=== PATIENT | female | born 1925 | race Caucasian/White ===

== ENCOUNTER 2017-02-02 22:17 | Emergency (ER) | payer MEDICARE, OTHER ==
--- NOTE | 2017-02-02 23:11 | ERNOTE ---
Dizziness ER Record Date of Service: 02/02/17 Presenting Symptoms: dizziness Time Seen by Provider: 02/02/17 23:10 Source: patient Immunizations: IMMUNIZATION HX Immunizations Up to Date Yes History of Influenza Vaccine Yes Hx Pneumococcal Vaccination Yes Allergies/Adverse Reactions: Allergies Allergy/AdvReac Type Severity Reaction Status Date / Time Penicillins Allergy Verified 03/13/14 02:14 Home Medications: HOME MEDICATIONS Aspirin 325 mg PO DAILY 07/19/12 [Last Taken Unknown] Nitroglycerin 0.4 mg SL Q5MIN PRN 07/19/12 [Last Taken Unknown] Pravastatin Sodium [Pravachol] 20 mg PO DAILY 07/19/12 [Last Taken Unknown] - History of Present Illness Narrative: Patient is an 89-year-old female established patient of Dr. Rivers presents to emergency room complaining of lightheadedness she has a past medical history significant for coronary artery disease and reports 2 stents in 2003. Her current medications include pravastatin and aspirin she reports that she just doesn't feel well she is nauseous and just didn't feel correct patient denies taking any medications prior to arrival patient felt like the room was spinning. Patient is also followed by Dr. Cortez of cardiology and I was sitting and she is due to see her in a few weeks. She currently denies any chest pain she denies any abdominal pain she does have some nausea she denies any significant lower extremity swelling. She denies any associated shortness of breath. Date (Duration): 02/02/17 Time (Timing): 17:00 Timing and Duration: gradual onset, still present Noted on awakening:: No Severity: max: moderate Severity: currently: mild Associated Symptoms: Present: nausea Sense of movement: Present: spinning Fainted/near fainted while:: Absent: standing, sitting, supine - patient did not feel at any time that she was going to pass out. Decreased ability to stand/walk:: Present: off balance, other - patient usually ambulates with a cane mostly independently. Absent: weak Usually:: Present: walks w/o assistance Modifying Factors - (Improves): Reports: nothing Modifying Factors - (Worsens): Reports: changing position Review of Systems - Review of Systems Constitutional: Present: See HPI EYE: Present: no symptoms reported ENT: Present: no symptoms reported Respiratory: Present: no symptoms reported Cardiology: Present: no symptoms reported Gastrointestinal/Abdominal: Present: See HPI, nausea Genitourinary: Present: no symptoms reported Musculoskeletal: Present: no symptoms reported Skin: Present: no symptoms reported Neurological: Present: dizziness/light-headedness. Absent: tremors, pre- existing deficit Endocrine: Present: no symptoms reported All Other Systems: All systems neg except as marked - Narrative Narrative: Past medical history past surgical history medications allergies social history family history reviewed as below - Patient's Past Medical History Patient History - Medical: Other Patient History - Cardiac/Respiratory: Angina, Hyperlipidemia Patient History - Cancer: No Hx of Cancer Patient History - Surgical Procedures: Other Patient History - Other: None - Social History Living Situations: alone Abuse History: No History of abuse Psych History: No pertinent hx Smoking Status: Never smoker Have you smoked in the past 12 months: No Do you dip or chew tobacco: No Alcohol Use: none Drug Use: none - Immunizations Immunizations Up to Date: Yes Hx Pneumococcal Vaccination: Yes History of Influenza Vaccine: Yes Physical Exam - Physical Exam General Appearance: Present: wd/wn, alert, no apparent distress. Absent: anxious Head Exam: Present: normal inspection, no evidence of injury Eye Exam: Normal inspection: bilateral, PERRL: bilateral, EOMI: bilateral Ears, Nose, Throat: Present: normal ENT inspection, normal except - Neck: Present: normal inspection, nontender Respiratory: Present: no respiratory distress, normal breath sounds, other - basilar crackles are noted. Cardiovascular/Chest: Present: regular rate, rhythm, no murmur, normal peripheral pulses, other - rales bilaterally Peripheral Pulses: N=norm/S=strong/W=weak/B=bound/A=absent: Carotid (R): Normal , Carotid (L): Normal, Dorsalis-pedis (R): Normal, Dorsalis-pedis (L): Normal Gastrointestinal/Abdominal: Present: normal bowel sounds, nontender, nondistended, soft Rectal Exam: Present: deferred Extremity Exam: Present: normal inspection, non-tender, normal range of motion Neurological Exam: Present: alert, oriented, normal mood/affect, no motor/ sensory deficits Skin Exam: Present: normal color, warm/dry Pelvic Exam: Present: deferred ED Progress - Date and Time Seen: Date and Time: 02/03/17 02:01 lasix 40 mg IV - Results and Orders Patient's Lab Results:: I have reviewed the patient's lab results. Results and Orders: Laboratory Tests 02/02/17 02/02/17 02/02/17 23:25 23:25 23:25 WBC 6.7 RBC 4.09 L Hgb 12.7 Hct 38.2 MCV 93.4 MCH 31.1 H MCHC 33.2 RDW 12.4 Plt Count 227 MPV 9.5 Immature Gran % (Auto) 0.30 Immature Gran # (Auto) 0.02 Neutrophils % 51.8 Lymphocytes % 35.6 Monocytes % 7.6 Eosinophils % 4.0 H Basophils % 0.7 Nucleated RBC % 0.0 Neutrophils # 3.5 Lymphocytes # 2.4 Monocytes # 0.5 Eosinophils # 0.3 Absolute Basophils 0.1 PT 10.6 INR (Anticoag Therapy) 1.02 PTT (Bates) 36.6 H Sodium 138 Plasma Sodium 138 Potassium 4.4 Chloride 105 Carbon Dioxide 23.8 L Anion Gap 13.6 BUN 19 Creatinine 1.07 Est GFR (Non-Af Amer) 51 L BUN/Creatinine Ratio 17.8 Random Glucose 122 H Calcium 8.6 Calcium Adj for Albumin 8.6 Total Bilirubin 0.4 AST 21 ALT 21 Alkaline Phosphatase 88 Troponin I 0.049 B-Natriuretic Peptide 652 H Total Protein 7.5 Albumin 3.6 - Vital Signs Patient's Vital Signs:: I have reviewed the patient's vital signs. Vital Signs: Vital Signs 02/02/17 02/02/17 22:34 23:03 Temperature 36.2 C L Pulse Rate 69 72 Respiratory 14 14 Rate Blood Pressure 180/99 141/74 O2 Sat by Pulse 97 96 Oximetry - EKG EKG: NSR EKG read: Interp. by me EKG Comments: EKG done at 2331 no abnormalities noted normal sinus rhythm 66 bpm normal EKG no STEMI, no ectopy - Progress/Reassessment Chief Complaint: Dizziness Progress:: Improved Plan - Plan Plan: stable for discharge. Departure Clinical Impression: Heart failure and kidney disease due to high blood pressure - Departure Disposition: Home self-care Condition: Good Instructions: Vertigo, [id number], Heart Failure, [id number] Referrals: Dara Rivers DO [Primary Care Provider] - 02/05/17
[2017-02-02] MEDS ORDERED: ASPIRIN 81 MG TAB.CHEW PO ONE (23:22)
[2017-02-02] MEDS ORDERED: NITROGLYCERIN 0.4 MG/TAB BTL SL PRN (23:22)
[2017-02-02] MEDS ORDERED: ASPIRIN 81 MG TAB.CHEW ONE (23:30)
[2017-02-02 23:31] LABS: Hematocrit 38.2 % (37.0-47.0); Hemoglobin 12.7 gm/dL (12.5-16.0); Mean Cell Volume 93.4 fl (78-100); Mean Corpuscular Hemoglobin 31.1 pg (27-31); Mean Corpuscular Hgb Conc 33.2 g/dl (32-36); Mean Platelet Volume 9.5 fl (6.0-9.5); Neutrophil # 3.5 K/mm3 (1.3-6.0); Neutrophil % 51.8 % (42-75.0); Platelet Count 227 K/mm3 (150-450); Red Blood Count 4.09 M/mm3 (4.2-5.4); Red Cell Distribution Width 12.4 % (11.5-14.0); White Blood Count 6.7 K/mm3 (4.0-10.5)
[2017-02-02 23:43] LABS: Prothrombin Time (Patient) 10.6 Seconds (9.4-11.4)
[2017-02-02 23:44] LABS: INR 1.02 INR (0.90-1.10); Partial Thrombolplastin Time 36.6 Seconds (24-32)
[2017-02-02 23:50] LABS: Troponin I 0.049 ng/ml (0.00-0.10)
[2017-02-02 23:52] LABS: Albumin * 3.6 gm/dl (3.4-5.0); Anion Gap 13.6 mmol/L (6.8-13.8); BUN/Creatinine Ratio 17.8 (9.0-21.6); Bilirubin, Total 0.4 mg/dL (0.0-1.1); Ca. Corrected For Albumin 8.6 mg/dL (8.4-10.2); Calcium * 8.6 mg/dL (7.9-10.9); Carbon Dioxide 23.8 mmol/L (24-32.6); Potassium 4.4 mmol/L (3.4-4.6); Total Protein 7.5 gm/dL (6.2-8.2)
[2017-02-03] MEDS ORDERED: FUROSEMIDE 10 MG/ML VIAL IV ONE ×2 (01:58→02:03)
[2017-02-03] MEDS ORDERED: FUROSEMIDE 10 MG/ML VIAL ONE (02:02)
[2017-02-03 03:35] VITALS: BP 122/69
== END 2017-02-03 03:32 | disposition home or self-care (01) ==
LOC: ER 22:17
DX: I11.0 Hypertensive heart disease with heart failure (principal); I50.9 Heart failure, unspecified; N28.9 Disorder of kidney and ureter, unspecified; E78.5 Hyperlipidemia, unspecified

== ENCOUNTER 2017-03-20 09:02 | Emergency (ER) | payer MEDICARE, OTHER ==
[2017-03-20 09:47] LABS: Hematocrit 38.3 % (37.0-47.0); Hemoglobin 12.6 gm/dL (12.5-16.0); Mean Cell Volume 93.4 fl (78-100); Mean Corpuscular Hemoglobin 30.7 pg (27-31); Mean Corpuscular Hgb Conc 32.9 g/dl (32-36); Mean Platelet Volume 9.2 fl (6.0-9.5); Neutrophil # 3.5 K/mm3 (1.3-6.0); Neutrophil % 60.8 % (42-75.0); Platelet Count 247 K/mm3 (150-450); Red Cell Distribution Width 12.8 % (11.5-14.0); White Blood Count 5.7 K/mm3 (4.0-10.5)
--- NOTE | 2017-03-20 10:15 | ERNOTE ---
Syncope ER HPI Date of Service: 03/20/17 Stated Complaint: SYNCOPAL Time Seen by Provider: 03/20/17 09:56 Source: patient Exam Limitations: no limitations Immunizations: IMMUNIZATION HX Immunizations Up to Date Yes History of Influenza Vaccine Yes Hx Pneumococcal Vaccination Yes Allergies/Adverse Reactions: Allergies Penicillins Allergy (Verified 03/20/17 09:10) Home Medications: HOME MEDICATIONS Aspirin 325 mg PO DAILY 07/19/12 [Last Taken Unknown] Nitroglycerin 0.4 mg SL Q5MIN PRN 07/19/12 [Last Taken Unknown] Pravastatin Sodium [Pravachol] 20 mg PO DAILY 07/19/12 [Last Taken Unknown] Cephalexin Monohydrate [Keflex] 500 mg PO QID #40 cap 03/20/17 [Last Taken Unknown] - History of Present Illness Narrative: Pt. comes in with c/o syncopal episode 2 hours ago while [place]. Pt. denies any recent illness but has had this occur in the past and recently had a holter monitor in February. Pt. also has a hx of CAD with stent placement two years ago. Pt. denies ny beta blockers and states taht her heartrate is always low and she has had frequent dizziness. Pt. denies any SOB, CP, NVD, or fever. Review of Systems - Review of Systems Constitutional: Present: no symptoms reported. Absent: fever, chills, weakness , fatigue, malaise EYE: Present: no symptoms reported. Absent: eye discharge, blurred vision, double vision, vision changes ENT: Present: no symptoms reported Respiratory: Present: no symptoms reported. Absent: shortness of breath, cough , wheezing Cardiology: Present: no symptoms reported. Absent: chest pain, palpitations, edema Gastrointestinal/Abdominal: Present: no symptoms reported. Absent: nausea, vomiting, diarrhea Genitourinary: Present: no symptoms reported Musculoskeletal: Present: no symptoms reported. Absent: back pain, joint pain Skin: Present: no symptoms reported Neurological: Present: no symptoms reported. Absent: headache, dizziness/light- headedness, numbness, tingling All Other Systems: All systems neg except as marked - Patient's Past Medical History Patient History - Cardiac/Respiratory: Angina, Coronary Heart Disease, Hyperlipidemia Patient History - Cancer: No Hx of Cancer Patient History - Surgical Procedures: Other Patient History - Other: None - Social History Living Situations: home Abuse History: No History of abuse Psych History: No pertinent hx Alcohol Use: none Drug Use: none - Immunizations Immunizations Up to Date: Yes Hx Pneumococcal Vaccination: Yes History of Influenza Vaccine: Yes Physical Exam - Physical Exam General Appearance: Present: wd/wn, alert, no apparent distress Head Exam: Present: normal inspection, no evidence of injury Eye Exam: Normal inspection: bilateral, PERRL: bilateral, EOMI: bilateral Ears, Nose, Throat: Present: normal ENT inspection, normal pharynx Neck: Present: normal inspection, nontender. Absent: lymphadenopathy (R), lymphadenopathy (L) Respiratory: Present: no respiratory distress, normal breath sounds, no accessory muscle use, chest nontender, lungs clear Cardiovascular/Chest: Present: no murmur, normal peripheral pulses, other - hansa Gastrointestinal/Abdominal: Present: normal bowel sounds, nontender, nondistended, soft, no organomegaly Back Exam: Present: normal inspection Extremity Exam: Present: normal inspection, non-tender, normal range of motion, no edema Neurological Exam: Present: alert, oriented, normal mood/affect, no motor/ sensory deficits, inward toll operator II-XII nml as tested, normal cerebellar test Skin Exam: Present: normal color, warm/dry. Absent: pallor, skin rash ED Progress - Date and Time Seen: Date and Time: 03/20/17 11:20 orthostatics reviewed and are normal 03/20/17 12:[address] powell and reviewed recent holter monitor and she will order MRA or US of carotids and have her follow up in clin ic the next day. I will start abx in the meantime for probable UTI. - Vital Signs Patient's Vital Signs:: I have reviewed the patient's vital signs. Vital Signs: Vital Signs 03/20/17 03/20/17 03/20/17 09:05 09:14 09:24 Temperature 35.7 C L Pulse Rate 67 73 63 Respiratory 12 Rate Blood Pressure 132/44 O2 Sat by Pulse 96 Oximetry - X-Ray X-Ray #1 X-Ray: chest Interpretation: Reviewed by me X-ray Comments: bronchial cuffing no consolidation. - CT/Ultrasound CT/Ultrasound Narrative: CTA chest CTA Chest: Pulmonary Arteries: Diagnostic Quality (for pulmonary arteries): Opacification of the pulmonary arterial branches is adequate. The breath hold is the most part adequate, although there is minimal motion artifact affecting the subsegmental branches of the bilateral basilar arteries. There is streak artifact from contrast material within the superior vena cava, which affects the adjacent pulmonary arteries. No definite filling defects are noted to suggest pulmonary thromboembolism. No definite axial CT image findings of right heart strain. Aorta: Opacification of the thoracic aorta is suboptimal for angiographic evaluation but no definite focal finding is seen. Atherosclerotic vascular calcifications noted throughout. Multiple artifacts related to cardiac motion and streak artifact from contrast in the adjacent superior vena cava noted. Mediastinum: No mediastinal mass or lymphadenopathy noted. Mildly prominent lymph nodes of the right hilum, measuring < 1 cm in short axis, stable. Heart: No significant pericardial effusion noted. Coronary arterial vascular calcifications noted suggestive of atherosclerosis. Lung Parenchyma: The lung parenchyma demonstrates no focal consolidation. Bilateral basilar atelectasis present. Somewhat hyperlucent appearance of the lungs especially the upper lung zones noted. Central Airways: Asymmetry of the vocal cords suggested on series 8 image 4, with medial deviation and prominence of the right vocal cord. The tracheal air column appears to be grossly patent. Mild peripheral bronchial wall prominence noted bilaterally. There is no definite signs of bronchiectasis. Pleural Spaces: No pneumothorax or pleural effusions present. Bones: Bones are grossly intact. Chest Wall/Axillae: Anterior chest wall is grossly unremarkable. Axillary regions are also grossly normal. Upper Abdomen: Visualized portions of the abdomen grossly unremarkable. IMPRESSION: 1. Negative for acute pulmonary thromboembolism. Minimal limitations due to respiratory and cardiac motion regarding the subsegmental branches of the bilateral basilar arteries. 2. Suboptimal opacification of the thoracic aorta for angiographic evaluation without obvious acute findings. 3. Hyperlucent appearance of the lungs, and peripheral bronchial wall prominence. Correlate clinically for acute or chronic bronchitis or COPD. 4. Coronary arterial and thoracic aortic atherosclerosis. 5. Incidental note of asymmetry of the vocal cords, with medial deviation and prominence of the right vocal cord. Correlate clinically. Recommend for further evaluation by direct visualization. Consider ENT referral/consultation. CT head No acute intracranial process - Progress/Reassessment Chief Complaint: Syncopal Episode Departure Clinical Impression: Syncope Qualifiers: Syncope type: unspecified Qualified Code(s): R55 - Syncope and collapse UTI (urinary tract infection) Qualifiers: Urinary tract infection type: site unspecified Hematuria presence: without hematuria Qualified Code(s): N39.0 - Urinary tract infection, site not specified - Departure Disposition: Home self-care Condition: Good Instructions: Urinary Tract Infection, Adult, [id number] Additional Instructions: Dr Gonzales office will call and arrange for further testing and follow up appointment this afternoon. Prescriptions: Cephalexin Monohydrate [Keflex] 500 mg PO QID #40 cap
[2017-03-20 10:24] LABS: Albumin * 3.2 gm/dl (3.4-5.0); Anion Gap 13.8 mmol/L (6.8-13.8); BUN/Creatinine Ratio 23.8 (9.0-21.6); Bilirubin, Total 0.3 mg/dL (0.0-1.1); Ca. Corrected For Albumin 8.8 mg/dL (8.4-10.2); Calcium * 8.5 mg/dL (7.9-10.9); Carbon Dioxide 24.4 mmol/L (24-32.6); Potassium 4.2 mmol/L (3.4-4.6)
[2017-03-20 10:29] LABS: Troponin I 0.028 ng/ml (0.00-0.10)
[2017-03-20 10:33] LABS: Magnesium 1.9 mg/dL (1.2-2.8); Phosphorus 3.7 mg/dL (2.2-4.2)
[2017-03-20 10:42] LABS: Urine Bilirubin Negative (NEGATIVE); Urine Blood Negative /ul (NEGATIVE); Urine Ketone Negative (NEGATIVE); Urine Nitrite Negative (NEGATIVE); Urine Protein Negative (NEGATIVE); Urine Urobilinogen Normal (NORMAL)
[2017-03-20] MEDS ORDERED: NORMAL SALINE 1,000 ML IV ONE (10:42)
[2017-03-20 10:55] LABS: Urine Appearance Slightly Cloudy; Urine Bacteria 1+; Urine Color Yellow; Urine RBC None Seen /hpf (0-5); Urine WBC 0-5 /hpf (0-5)
[2017-03-20 12:51] VITALS: BP 161/58
== END 2017-03-20 15:55 | disposition home or self-care (01) ==
LOC: ER 09:02
DX: R55 Syncope and collapse (principal); N39.0 Urinary tract infection, site not specified; E78.5 Hyperlipidemia, unspecified; I25.2 Old myocardial infarction